=== PATIENT | male | born 1960 | race Caucasian/White ===

== ENCOUNTER 2021-10-28 13:42 | Outpatient (CLI) | payer BC, OTHER, SELFPAY ==
--- NOTE | 2021-10-28 14:00 | CRLHL7_ITS ---
For Patients: As a result of the Century Cures Act, medical imaging exams and procedure reports are released immediately into your electronic medical record. You may view this report before your referring provider. If you have questions, please contact your health care provider. INDICATION: Left calf pain. COMPARISON: None. TECHNIQUE: A compression venous ultrasound exam was performed of the left lower extremity using morel-scale imaging, color Doppler and spectral Doppler analysis. FINDINGS: Sonographic imaging of the left lower extremity demonstrates normal compressibility and color Doppler venous blood flow within the common femoral vein, deep femoral vein, and the proximal greater saphenous vein. Within the thigh, the femoral vein is patent and compressible. At a lower level, the popliteal and posterior tibial veins also show normal compressibility and color Doppler venous blood flow. Limited imaging of the contralateral groin demonstrates a normal spectral waveform and color Doppler venous blood flow within the right common femoral vein. IMPRESSION: Normal venous ultrasound exam. No evidence of deep vein thrombosis within the left lower extremity. Dictated by Adeel Arndt MD @ 10/28/2021 4:51:27 PM (Electronically Signed)
== END 2021-10-28 13:43 | disposition home or self-care (01) ==
PROVIDERS: PCP Family Medicine; Visit Provider Family Medicine
DX: M79.605 Pain in left leg (principal); R60.0 Localized edema
CPT/HCPCS: 93971

== ENCOUNTER 2022-01-05 14:31 | Outpatient (CLI) | payer BC, OTHER, SELFPAY ==
[2022-01-05 21:32] LABS: Albumin* 4.6 g/dL (3.3-5.0)
[2022-01-05 21:33] LABS: Chloride* 102 mmol/L (96-114); Potassium* 3.9 mmol/L (3.6-5.1); Sodium* 139 mmol/L (135-149)
[2022-01-05 21:35] LABS: Aspartate Amino Transferase* 32 U/L (12-35); Bilirubin Direct* 0.2 mg/dL (0.0-0.5); Bilirubin Total* 1.1 mg/dL (0.1-1.5); Blood Urea Nitrogen* 22 mg/dL (7-30); Carbon Dioxide* 26 mmol/L (20-32); Estimated Glomerular Filt Rate 86 ml/min; Total Protein* 7.1 g/dL (6.0-8.3)
[2022-01-05 21:36] LABS: Alanine Aminotransferase* 50 U/L (4-50); Alkaline Phosphatase* 81 U/L (40-150); Calcium* 9.9 mg/dL (8.4-10.6); Glucose* 99 mg/dL (60-115)
== END 2022-01-05 14:32 | disposition home or self-care (01) ==
PROVIDERS: PCP Family Medicine; Visit Provider Emergency Medicine
DX: R60.0 Localized edema (principal)
CPT/HCPCS: 80048; 80076; 84443

== ENCOUNTER 2022-02-14 12:48 | Outpatient (CLI) | payer BC, OTHER, SELFPAY ==
--- NOTE | 2022-02-14 14:47 | PC.NURSE ---
Definity 3ml administered IV for echo. 22g PIV placed in right hand. This was taken out and catheter intact after procedure. Lot #: [id number] Exp: 01/10/23
[2022-02-14] MEDS: PERFLUTREN LIPID MICROSPHERES 2 ML VIAL IV (14:49)
== END 2022-02-14 12:49 | disposition home or self-care (01) ==
LOC: US 12:48
PROVIDERS: PCP Family Medicine; Visit Provider Emergency Medicine
DX: R60.0 Localized edema (principal); M79.669 Pain in unspecified lower leg; R20.0 Anesthesia of skin
CPT/HCPCS: 93306; 93924; Q9957

== ENCOUNTER 2022-07-01 10:01 | Outpatient (CLI) | payer BC, OTHER, SELFPAY | END 2022-07-01 10:02 | disposition home or self-care (01) | PROVIDERS: PCP Family Medicine; Visit Provider Family Medicine | DX: I10 Essential (primary) hypertension (principal); I77.810 Thoracic aortic ectasia; R05.9 Cough, unspecified; G62.9 Polyneuropathy, unspecified; M10.9 Gout, unspecified | CPT/HCPCS: 80048; 82607 ==

== ENCOUNTER 2022-08-05 14:03 | Outpatient (CLI) | payer BC, OTHER, SELFPAY ==
--- NOTE | 2022-08-05 14:30 | CRLHL7_ITS ---
For Patients: As a result of the Century Cures Act, medical imaging exams and procedure reports are released immediately into your electronic medical record. You may view this report before your referring provider. If you have questions, please contact your health care provider. INDICATION: Neurogenic claudication. TECHNIQUE: Multiplanar multisequence noncontrast MR images acquired through the lumbar spine. COMPARISON: Lumbar spine radiographs 07/22/2022. FINDINGS: The lumbar lordosis is preserved. Vertebral heights maintained. No acute fracture. No T1 hypointense marrow replacing lesions. Normal conus terminates at T12-L1. T12-L1: Mild disc degeneration. No spinal canal or neural foraminal narrowing. L1-2: Mild disc degeneration. Mild facet arthropathy. No spinal canal or neural foraminal narrowing. L2-3: Vxnj-wo-gmnpixzx disc degeneration. Left eccentric disc bulging and endplate spondylitic ridging. Mild facet arthropathy. No spinal canal narrowing. Minimal left without right neural foraminal narrowing. L3-4: Hhjh-hx-bwezywdv disc degeneration. Shallow posterior disc bulging and endplate spondylitic ridging. Znoz-eg-iqzsuude facet arthropathy. No spinal canal narrowing. Rfto-yp-httsjzps left and mild right neural foraminal narrowing. L4-5: Moderate disc degeneration. Posterior disc bulge and endplate spondylitic ridging. Advanced bilateral facet arthropathy. Thickening ligamentum flavum. Dorsal epidural fat prominence. Edema within the bilateral posterior elements. Mild spinal canal and lateral recess narrowing. Moderate left and royn-oe-mwftxgdu right neural foraminal narrowing. L5-S1: Trace retrolisthesis. Advanced disc degeneration and disc height loss. Posterior disc bulging and endplate spondylitic ridging. Smkt-zj-gvgrmjdn facet arthropathy. No spinal canal narrowing. Mild narrowing of the lateral recesses. Gsik-st-spwdcchm left and mild right neural foraminal narrowing. Incompletely visualized T2 hyperintense lesion arising from the left kidney inferior pole, likely representing a renal cyst. IMPRESSION: 1. Multilevel lumbar spondylosis without spinal canal stenosis. 2. At L3-4, mild to moderate left neural foraminal narrowing. 3. At L4-5, mild spinal canal and lateral recess narrowing. Moderate left and dfiu-qo-zmpdlcnq right neural foraminal narrowing. Edema within the bilateral posterior elements, likely representing a stress response. Advanced facet arthropathy. 4. At L5-S1, mild to moderate left and mild right neural foraminal narrowing. Advanced disc height loss. Dictated by Nemesio Martin MD @ 08/06/2022 12:06:14 PM (Electronically Signed)
[2022-08-05 14:39] LABS: Creatinine* 0.8 mg/dL (0.5-1.5); Estimated Glomerular Filt Rate 101 ml/min
--- NOTE | 2022-08-05 15:00 | CRLHL7_ITS ---
For Patients: As a result of the Century Cures Act, medical imaging exams and procedure reports are released immediately into your electronic medical record. You may view this report before your referring provider. If you have questions, please contact your health care provider. Indication: pleural based density, cough Technique: Post contrast CT chest. 100 cc Isovue 370 intravenous contrast Please note that all CT scans at this facility use dose modulation, iterative reconstruction, and/or weight-based dosing when appropriate to reduce radiation dose to as low as reasonably achievable. Comparison: 11/19/2018 Findings: Interval clearing of previously noted density at the left costophrenic angle. Stable calcified granuloma right lower lobe. No new pulmonary nodule. No enlarged intrathoracic lymph nodes. Atherosclerotic disease. Fatty infiltration of the liver. Gallbladder absent. No fracture. Degenerative changes. Impression: Interval clearing of previously noted density at the left posterior costophrenic angle. Lungs are now clear. Please note that all CT scans at this facility use dose modulation, iterative reconstruction, and/or weight-based dosing when appropriate to reduce radiation dose to as low as reasonably achievable. Dictated by aJlen Madrid MD @ 08/06/2022 9:35:18 PM (Electronically Signed)
== END 2022-08-05 14:04 | disposition home or self-care (01) ==
LOC: MRI 14:04
PROVIDERS: PCP Family Medicine; Visit Provider Family Medicine
DX: G62.9 Polyneuropathy, unspecified (principal); I73.9 Peripheral vascular disease, unspecified; M47.896 Other spondylosis, lumbar region; M51.26 Other intervertebral disc displacement, lumbar region; M54.9 Dorsalgia, unspecified; M79.605 Pain in left leg
CPT/HCPCS: 36415; 71260; 72148; 82565; Q9967

== ENCOUNTER 2022-10-11 13:02 | Outpatient (CLI) | payer BC, OTHER, SELFPAY | END 2022-10-11 13:03 | disposition home or self-care (01) | LOC: RAD 13:02 | PROVIDERS: PCP Family Medicine; Visit Provider Family Medicine | DX: M51.36 Other intervertebral disc degeneration, lumbar region (principal); M54.16 Radiculopathy, lumbar region; M48.061 Spinal stenosis, lumbar region without neurogenic claudication | CPT/HCPCS: 62323; J0702; Q9966 ==

== ENCOUNTER 2022-11-29 09:26 | Outpatient (CLI) | payer BC, OTHER, SELFPAY | END 2022-11-29 09:27 | disposition home or self-care (01) | PROVIDERS: PCP Family Medicine; Visit Provider Family Medicine | DX: M51.16 Intervertebral disc disorders with radiculopathy, lumbar region (principal) | CPT/HCPCS: 62323; J0702; Q9966 ==

== ENCOUNTER 2022-12-23 08:10 | Outpatient (CLI) | payer OTHER, SELFPAY | END 2022-12-23 08:11 | disposition home or self-care (01) | LOC: INJ CL 08:10 | PROVIDERS: PCP Family Medicine; Visit Provider Family Medicine | DX: M54.16 Radiculopathy, lumbar region (principal); M51.36 Other intervertebral disc degeneration, lumbar region | CPT/HCPCS: 64483; J1100; Q9966 ==

== ENCOUNTER 2023-02-02 09:07 | Outpatient (CLI) | payer OTHER, SELFPAY | END 2023-02-02 09:08 | disposition home or self-care (01) | LOC: WOUND 09:07 | PROVIDERS: PCP Family Medicine; Visit Provider Nurse Practitioner Family | DX: I87.313 Chronic venous hypertension (idiopathic) with ulcer of bilateral lower extremity (principal); L97.812 Non-pressure chronic ulcer of other part of right lower leg with fat layer exposed; L97.822 Non-pressure chronic ulcer of other part of left lower leg with fat layer exposed; I89.0 Lymphedema, not elsewhere classified; Z72.0 Tobacco use | CPT/HCPCS: 97602; 99213 ==

== ENCOUNTER 2023-02-16 13:46 | Outpatient (CLI) | payer OTHER, SELFPAY | END 2023-02-16 13:47 | disposition home or self-care (01) | LOC: WOUND 13:46 | PROVIDERS: PCP Family Medicine; Visit Provider Nurse Practitioner Family | DX: I87.313 Chronic venous hypertension (idiopathic) with ulcer of bilateral lower extremity (principal); L97.812 Non-pressure chronic ulcer of other part of right lower leg with fat layer exposed; L97.822 Non-pressure chronic ulcer of other part of left lower leg with fat layer exposed; L97.322 Non-pressure chronic ulcer of left ankle with fat layer exposed; I89.0 Lymphedema, not elsewhere classified | CPT/HCPCS: 97602; 99214 ==

== ENCOUNTER 2024-02-12 15:31 | Outpatient (CLI) | payer OTHER, SELFPAY | END 2024-02-12 15:32 | disposition home or self-care (01) | PROVIDERS: PCP Family Medicine; Visit Provider Family Medicine | DX: Z00.00 Encounter for general adult medical examination without abnormal findings (principal); I10 Essential (primary) hypertension; R79.89 Other specified abnormal findings of blood chemistry; R05.9 Cough, unspecified; R60.0 Localized edema; Z12.5 Encounter for screening for malignant neoplasm of prostate; Z13.6 Encounter for screening for cardiovascular disorders | CPT/HCPCS: 80061; 80076; 82043; 82570; G0103 ==

== ENCOUNTER 2024-06-26 08:40 | Outpatient (CLI) | payer OTHER, SELFPAY ==
[2024-06-26] MEDS: PERFLUTREN LIPID MICROSPHERES 2 ML VIAL IVP (09:37)
--- NOTE | 2024-06-26 09:49 | PC.NURSE ---
20G IV placed in right hand. Definity per iv technician. Iv them removed intact.
== END 2024-06-26 08:41 | disposition home or self-care (01) ==
LOC: RAD 08:40
PROVIDERS: PCP Family Medicine; Visit Provider Family Medicine
DX: I77.810 Thoracic aortic ectasia (principal)
CPT/HCPCS: 93306; Q9957

== ENCOUNTER 2024-10-02 12:28 | Outpatient (CLI) | payer OTHER, SELFPAY ==
--- NOTE | 2024-10-02 13:00 | CRLHL7_ITS ---
For Patients: As a result of the Cures Act, medical imaging exams and procedure reports are released immediately into your electronic medical record. You may view this report before your referring provider. If you have questions, please contact your health care provider. INDICATION: Lung cancer screening. History of smoking. High risk patient with greater than 53 pack-year smoking history. TECHNIQUE: Low-dose lung cancer screening non-contrast CT chest. Dose reduction techniques were used. COMPARISON: 08/05/2022 FINDINGS: NODULES: Calcified granuloma within the right lower lobe is again noted. Additional calcified granuloma within the left upper lobe is also unchanged. LUNGS AND PLEURA: Normal. MEDIASTINUM: No adenopathy. Atherosclerotic changes. Visualized thyroid is normal. CORONARY ARTERY CALCIFICATION: None. LIMITED UPPER ABDOMEN: Status post cholecystectomy. Fatty infiltration of the liver. MUSCULOSKELETAL: Normal. IMPRESSION: Negative for lung cancer screening purposes. LUNG-RADS CATEGORY: 2: Benign. RADIOLOGIST RECOMMENDATION: Continue annual screening, if eligible, with low-dose CT chest in 12 months. Please note that all CT scans at this facility use dose modulation, iterative reconstruction, and/or weight-based dosing when appropriate to reduce radiation dose to as low as reasonably achievable. Dictated by Jalen Madrid MD @ 10/02/2024 1:38:24 PM (Electronically Signed)
== END 2024-10-02 12:29 | disposition home or self-care (01) ==
LOC: CT 12:29
PROVIDERS: PCP Family Medicine; Visit Provider Family Medicine
DX: Z12.2 Encounter for screening for malignant neoplasm of respiratory organs (principal); Z72.0 Tobacco use
CPT/HCPCS: 71271

== ENCOUNTER 2024-12-09 12:52 | Outpatient (CLI) | payer OTHER, SELFPAY ==
--- NOTE | 2024-12-09 13:00 | CRLHL7_ITS ---
For Patients: As a result of the Century Cures Act, medical imaging exams and procedure reports are released immediately into your electronic medical record. You may view this report before your referring provider. If you have questions, please contact your health care provider. Indication: Dorsalgia Technique: Multiplanar, multisequence, MRI of the lumbar spine, obtained without contrast. Comparison: Lumbar spine x-ray 09/26/2024, MRI lumbar spine 08/05/2022 Findings: The lumbar lordosis is preserved. No significant spondylolisthesis. Vertebral body heights are grossly maintained. No evidence of acute fracture or focal compression deformity. Scattered degenerative Schmorl`s nodes. Bulky ventral bridging osteophytes across L5-S1, with Modic type 2 opposing endplate changes. No suspicious bone marrow lesion. Conus medullaris terminates at L1. No concerning findings in the paravertebral soft tissues. Partial ankylosis across the included SI joints. T12-L1: No neural foraminal or spinal canal stenosis. L1-L2: Mild facet arthropathy. No neural foraminal or spinal canal stenosis. L2-L3: Shallow left eccentric disc bulge, mild facet arthropathy. No neural foraminal or spinal canal stenosis. L3-L4: Mild disc bulge, mild facet arthropathy. Mild bilateral neural foraminal narrowing. No spinal canal stenosis. L4-L5: Mild disc bulge, moderate facet arthropathy. Mild-moderate right, moderate left neural foraminal stenosis. No spinal canal stenosis. L5-S1: Diffuse disc-osteophyte complex, facet arthropathy. Mild right, mild-moderate left neural foraminal narrowing. Left lateral recess stenosis potentially impinging the descending left S1 nerve root. No central spinal canal stenosis. Impression: 1. Lumbar spondylosis as detailed, similar to the 08/05/2022 MRI. 2. At L4-L5, moderate left neural foraminal stenosis and mild-moderate right neural foraminal narrowing. 3. At L5-S1, mild-moderate left neural foraminal narrowing, and left lateral recess stenosis potentially impinging the left S1 nerve root. Dictated by Alma Rojas MD @ 12/09/2024 2:26:57 PM (Electronically Signed)
== END 2024-12-09 12:53 | disposition home or self-care (01) ==
LOC: MRI 12:53
PROVIDERS: PCP Family Medicine; Visit Provider Family Medicine
DX: M54.9 Dorsalgia, unspecified (principal); M47.896 Other spondylosis, lumbar region; M48.061 Spinal stenosis, lumbar region without neurogenic claudication; M48.07 Spinal stenosis, lumbosacral region
CPT/HCPCS: 72148

== ENCOUNTER 2025-01-07 07:41 | Outpatient (CLI) | payer OTHER, SELFPAY | END 2025-01-07 07:42 | disposition home or self-care (01) | LOC: INJ CL 07:42 | PROVIDERS: PCP Family Medicine; Visit Provider Family Medicine | DX: M54.16 Radiculopathy, lumbar region (principal); M51.360 Other intervertebral disc degeneration, lumbar region with discogenic back pain only | CPT/HCPCS: 62323; J0702; Q9966 ==